=== PATIENT | male | born 1945 | race Caucasian/White ===

== ENCOUNTER 2017-03-17 23:24 | Emergency (ER) | payer MEDICARE ==
[2017-03-18 03:02] LABS: APPEARANCE,URINE SLIGHTLY-CLOUDY; BILIRUBIN,URINE NEGATIVE (NEGATIVE); GLUCOSE, URINE NEGATIVE (NEGATIVE); KETONES,URINE NEGATIVE (NEGATIVE); LEUKOCYTE ESTERASE,URINE MODERATE (NEGATIVE); NITRITE,URINE NEGATIVE (NEGATIVE); PROTEIN,URINE NEGATIVE (NEGATIVE); URINE SPECIFIC GRAVITY 1.025
[2017-03-18] MEDS ORDERED: CIPROFLOXACIN HCL 500 MG TABLET PO ONE (03:13)
--- NOTE | 2017-03-18 03:20 | ER Document Report ---
ED General - General Chief Complaint: Urinary Problem Stated Complaint: BOWEL MOVEMENT ISSUE Time Seen by Provider: 03/18/17 02:05 Notes: Patient is a pleasant 71-year-old male who presents with complaints of dysuria. He has had it for approximately 1 week. He went to his urologist, Dr. Candelario , last week and had a urinalysis performed. He was called yesterday informed that the urinalysis was negative. He says his dysuria is gotten worse and now he feels a pressure in his bottom every time he uses a bowel movement as well. He does have a history of prostate enlargement and has had prostatitis in the past. He denies any fevers. No vomiting. No diarrhea. No other complaints at this time. TRAVEL OUTSIDE OF THE [place] IN LAST 30 DAYS: No - Related Data Allergies/Adverse Reactions: No Known Allergies Allergy (Verified 03/18/17 00:41) Past Medical History - Social History Smoking Status: Current Every Day Smoker Chew tobacco use (# tins/day): No Frequency of alcohol use: Rare Drug Abuse: None Family History: Reviewed & Not Pertinent - Past Medical History Cardiac Medical History: Reports: Hx Hypertension - MEDICATED 120-180 Denies: Hx Heart Attack Pulmonary Medical History: Reports: Hx Asthma Neurological Medical History: Denies: Hx Cerebrovascular Accident, Hx Seizures Renal/ Medical History: Denies: Hx Peritoneal Dialysis GI Medical History: Denies: Hx Hepatitis, Hx Hiatal Hernia, Hx Ulcer Infectious Medical History: Denies: Hx Hepatitis Past Surgical History: Reports: Hx Open Heart Surgery - STENT X 1. Denies: Hx Pacemaker Review of Systems - Review of Systems Notes: My Normal Review Basic REVIEW OF SYSTEMS: CONSTITUTIONAL : Denies fever, chills, or sweats. Denies recent illness. RESPIRATORY: Denies cough, cold, or chest congestion. Denies shortness of breath, difficulty breathing, or wheezing. GASTROINTESTINAL: Denies abdominal pain. Denies nausea, vomiting, or diarrhea. Denies constipation. Last BM: GENITOURINARY: Dysuria MUSCULOSKELETAL: Denies neck or back pain or joint pain or swelling. SKIN: Denies rash or skin lesions. NEUROLOGICAL: Denies altered mental status or loss of consciousness. Denies weakness or paralysis or loss of use of either side. Denies problems with gait or speech. Denies sensory or motor loss. ALL OTHER SYSTEMS REVIEWED AND NEGATIVE. Physical Exam - Vital signs Vitals: Temp Pulse Resp BP Pulse Ox 97.6 F 69 18 168/66 H 98 03/18/17 00:43 03/18/17 00:43 03/18/17 00:43 03/18/17 00:43 03/18/17 00:43 - Notes Notes: General Appearance: Well nourished, alert, cooperative, no acute distress, no obvious discomfort. Well-appearing. Vitals: reviewed, See vital signs table. Eyes: PERRL, EOMI, Conjuctiva clear Lungs: No wheezing, No rales, No rhonci, No accessory muscle use, good air exchange bilaterally. Heart: Normal rate, Regular rythm, No murmur, no rub Abdomen: Normal BS, soft, No rigidity, No abdominal tenderness, No guarding, no rebound, Rectal: Patient has a large prostate on rectal examination. He does have pain and burning type sensation whenever I push on the prostate. Genital: Normal external genitalia without redness or swelling. Extremities: strength 5/5 in all extremities, good pulses in all extremities, no swelling or tenderness in the extremities, no edema. Skin: warm, dry, appropriate color, no rash Neuro: speech clear, oriented x 3, normal affect, responds appropriately to questions. Course - Re-evaluation Re-evalutation: 03/18/17 03:19 Patient's history and physical exam findings are consistent with that of prostatitis. His urinalysis does show some signs of infection further concerning for prostatitis. I will place him on Cipro for 2 weeks. I encouraged him follow-up with his urologist, Dr. Zheng, next week. I encouraged him return to ER immediately if he has fevers, vomiting, further difficulty urinating, or if he feels unwell. Patient agrees with plan will be discharged home. Patient is [place] no pain to palpation of his abdomen therefore I do not think he needs any blood work or imaging studies of his abdomen. Dictation of this chart was performed using voice recognition software; therefore, there may be some unintended grammatical errors. - Vital Signs Vital signs: Temp Pulse Resp BP Pulse Ox 97.6 F 69 18 168/66 H 98 03/18/17 00:43 03/18/17 00:43 03/18/17 00:43 03/18/17 00:43 03/18/17 00:43 - Laboratory Laboratory results interpreted by me: 03/18/17 02:35 Urine Urobilinogen 2.0 H Ur Leukocyte Esterase MODERATE H Discharge - Discharge Clinical Impression: Dysuria Prostatitis Qualifiers: Prostatitis type: acute Qualified Code(s): N41.0 - Acute prostatitis Condition: Good Disposition: HOME, SELF-CARE Additional Instructions: Prostatitis You have prostatitis, an infection in the prostate gland. This gland lies just below the bladder. Bacteria enter the prostate gland from the urine. Symptoms of prostatitis may include pelvic aching, fever, pain on urination, and discharge from the penis. Prostatitis is treated with antibiotics. A follow-up exam is usually required to insure that the infection has resolved. Some cases of prostatitis become chronic. It's important that you take the medication as prescribed. Drink plenty of fluids. Sexual intercourse is allowed. This is not a venereal disease, and is not contagious to your spouse. Call the doctor or return for re-examination at once if you feel more ill, develop high fever and shaking chills, have increasing pain, or if you are unable to pass your urine. Please call Dr. Candelario's office to follow up this week. Prescriptions: Ciprofloxacin HCl [Cipro 500 mg Tablet] 500 mg PO BID #27 tablet
[2017-03-18 03:49] VITALS: BP 168/93
== END 2017-03-18 03:48 | disposition home or self-care (01) ==
LOC: ER 23:24
DX: N41.0 Acute prostatitis (principal); R30.0 Dysuria; R39.198 Other difficulties with micturition; F17.200 Nicotine dependence, unspecified, uncomplicated
CPT/HCPCS: 99283; 81001; A9270

== ENCOUNTER → 2019-05-29 | Outpatient (CLI) | payer MEDICARE ==
--- NOTE | 2019-05-29 12:18 | RADIOLOGY REPORT (SQ) ---
EXAM DESCRIPTION: U/S NON-OB PELVIS W/O DOP COMPLETED DATE/TIME: 05/29/2019 9:01 am REASON FOR STUDY: K40.30 UNIL INGUINAL HERNIA, W OBST, W/O GANGR, NOT SPCF RECUR K40.30 UNIL ING UINAL HERNIA, W OBST, W/O GANGR, NOT SPCF COMPARISON: None. TECHNIQUE: Dynamic and static grayscale images acquired of the pelvis via transabdominal approach an d recorded on PACS. Additional selected color Doppler and spectral images recorded. LIMITATIONS: None. FINDINGS: Sonographic imaging of the right groin shows a hematoma measuring 6.3 x 4.1 x 2.3 cm. IMPRESSION: Right groin hematoma. TECHNICAL DOCUMENTATION: JOB ID: [id number] [employer]- All Rights Reserved Rev-10/12 Reading location - IP/workstation name: [email or web address]
== END ==
LOC: RAD 08:19
PROVIDERS: ATTEND Surgery
DX: K40.30 Unilateral inguinal hernia, with obstruction, without gangrene, not specified as recurrent (principal)
CPT/HCPCS: 76856

== ENCOUNTER → 2019-12-16 | Outpatient (CLI) | payer MEDICARE ==
--- NOTE | 2019-12-16 12:21 | RADIOLOGY REPORT (SQ) ---
EXAM DESCRIPTION: VENOUS UNILATERAL LOWER IMAGES COMPLETED DATE/TIME: 12/16/2019 11:59 am REASON FOR STUDY: LLE SWELLING SOB R22.42 LOCALIZED SWELLING, MASS AND LUMP, LEFT LOWER LIMB COMPARISON: None. TECHNIQUE: Dynamic and static le scale and color images acquired of the left leg venous system. Se lected spectral images acquired with additional compression and augmentation maneuvers. The contralat eral common femoral vein and saphenofemoral junction were also imaged. Images stored on PACS. LIMITATIONS: None. FINDINGS: COMMON FEMORAL: Normal phasicity, compression and augmentation. No visualized echogenic ma terial on le scale. No defects on color images. FEMORAL: Normal compression and augmentation. No visualized echogenic material on le scale. No defe cts on color images. POPLITEAL: Normal compression, augmentation. No visualized echogenic material on le scale. No defec ts on color images. CALF VESSELS: Normal compression, augmentation. No visualized echogenic material on le scale. No de fects on color images. GSV and SSV: Normal compression, augmentation. No visualized echogenic material on le scale. No def ects on color images. ANY DEEP VENOUS INSUFFICIENCY: No. ANY EVIDENCE OF POPLITEAL CYST: No. OTHER: No other significant finding. CONTRALATERAL COMMON FEMORAL VEIN AND SAPHENOFEMORAL JUNCTION: Normal phasicity, compression and augmentation. No visualized echogenic material on le scale. No de fects on color images. IMPRESSION: NO EVIDENCE DVT OR SVT IN THE LEFT LEG. TECHNICAL DOCUMENTATION: JOB ID: [id number] [employer]- All Rights Reserved Reading location - IP/workstation name: [email or web address]
== END ==
LOC: SP 10:15
PROVIDERS: ATTEND Specialist
DX: I73.9 Peripheral vascular disease, unspecified (principal); R22.42 Localized swelling, mass and lump, left lower limb
CPT/HCPCS: 93971